=== PATIENT | male | born 1985 | race Caucasian/White ===

== ENCOUNTER 2017-08-03 19:30 | Emergency (ER) | payer OTHER ==
[~2017-08-03] VITALS: Ht 167.6 cm; Wt 71.8 kg
[2017-08-03 20:09] LABS: HEMATOCRIT 50.2 % (39.2-51.8); HEMOGLOBIN 16.8 g/dL (13.7-18.0); WHITE BLOOD COUNT 11.1 x10^3/uL (3.4-10)
[2017-08-03 20:19] LABS: BLOOD UREA NITROGEN 9 mg/dL (7-18)
[2017-08-03 20:21] LABS: ACETAMINOPHEN < 2 mcg/mL (10-30)
[2017-08-03 23:03] LABS: DAU SCREEN DISCLAIMER
[2017-08-03 23:40] VITALS: BP 139/81
== END 2017-08-03 23:41 | disposition home or self-care (01) ==
LOC: ED 23:15
DX: F33.9 Major depressive disorder, recurrent, unspecified (principal); Z59.0 Homelessness
CPT/HCPCS: 36415; 80048; 80307; 80329; 82040; 85025; 99284; G0479; G0480